=== PATIENT | female | born 1965 | race Caucasian/White ===

== ENCOUNTER 2025-02-11 09:25 | Emergency (ER) | payer BC ==
[2025-02-11] MEDS: Ketorolac 30 MG/ML SDV IM ONE (10:16)
== END 2025-02-11 11:17 | disposition home or self-care (01) ==
LOC: MW.ED 09:25
DX: S46.212A Strain of muscle, fascia and tendon of other parts of biceps, left arm, initial encounter (principal); M70.811 Other soft tissue disorders related to use, overuse and pressure, right shoulder; G89.29 Other chronic pain; Z79.899 Other long term (current) drug therapy; X50.9XXA Other and unspecified overexertion or strenuous movements or postures, initial encounter; Y99.0 Civilian activity done for income or pay
CPT/HCPCS: 73030; 73080; 96372; 99283; A9270; J1885; J8540